=== PATIENT | female | born 1950 | race Two or more races ===

== ENCOUNTER 2017-04-29 10:58 | Outpatient (CLI) | payer BC ==
[2017-04-29 12:38] LABS: BASOPHILS % (AUTO) 0.5 % (0.0-2.0); EOSINOPHILS # (AUTO) 0.1 /CMM (0.0-0.7); EOSINOPHILS % (AUTO) 1.6 % (0.0-6.0); HEMATOCRIT 40 % (33-45); HEMOGLOBIN 13.7 g/dL (11.5-14.8); LYMPHOCYTES # (AUTO) 1.7 /CMM (0.8-4.8); LYMPHOCYTES % (AUTO) 25.6 % (20.0-44.0); MEAN CORPUSCULAR HEMOGLOBIN 30 PG (26.0-33.0); MEAN CORPUSCULAR HGB CONC 34 g/dl (31.0-36.0); MEAN CORPUSCULAR VOLUME 89 fL (82-100); MONOCYTES # (AUTO) 0.4 /CMM (0.1-1.30); MONOCYTES % (AUTO) 6.4 % (2.0-12.0); NEUTROPHILS # (AUTO) 4.5 /CMM (1.8-8.9); NEUTROPHILS % (AUTO) 65.9 % (43.0-81.0); PLATELET COUNT (AUTO) 211 /CMM (150-450); RDW COEFFICIENT OF VARIATION 12.7 (11.5-15.0); RED BLOOD CELL COUNT(AUTO) 4.51 MIL/uL (4.0-5.2); WHITE BLOOD COUNT (AUTO) 6.8 K/uL (4.3-11.0)
[2017-04-29 12:43] LABS: APPEARANCE,URINE CLEAR (CLEAR); BILIRUBIN,URINE NEGATIVE (NEGATIVE); BLOOD, URINE TRACE-INTA Ery/uL (NEGATIVE); COLOR,URINE YELLOW (YELLOW); KETONES,URINE NEGATIVE (NEGATIVE); LEUKOCYTE ESTERASE ,URINE NEGATIVE (NEGATIVE); NITRITE, URINE NEGATIVE (NEGATIVE); PH,URINE 7.5 (5.0-8.0); PROTEIN,URINE NEGATIVE (NEGATIVE); UGLUCOSE NEGATIVE (NEGATIVE); UROBILINOGEN,URINE 0.2 EU/dL (0.2)
[2017-04-29 12:57] LABS: ALANINE AMINOTRANSFERASE 24 U/L (12-78); ALBUMIN 3.9 g/dL (3.4-5.0); ALKALINE PHOSPHATASE 85 U/L (46-116); ASPARTATE AMINOTRANSFERASE 16 U/L (15-37); BILIRUBIN,TOTAL 0.3 mg/dL (0.2-1.0); CALCIUM, SERUM 9.9 mg/dL (8.5-10.1); CARBON DIOXIDE 29 mmol/L (21-32); CHLORIDE 107 mmol/L (98-107); CREATININE 0.7 mg/dL (0.6-1.3); GLUCOSE 92 mg/dL (74-106); POTASSIUM 4.3 mmol/L (3.5-5.1); SODIUM SERUM 146 mmol/L (136-145); TOTAL PROTEIN, SERUM 7.9 g/dL (6.4-8.2); UREA NITROGEN, BLOOD 15 mg/dL (7-18)
[2017-04-29 12:58] LABS: BACTERIA,URINE None seen /HPF (None Seen); RBC,URINE 0-2 /HPF (0-2); SQUAMOUS EPITHELIAL CELL,UR Few /HPF (None Seen); WBC,URINE NONE SEEN /HPF (0-3)
[2017-04-29 13:02] LABS: IRON, SERUM 66 ug/dl (50-175); TOTAL IRON BINDING CAPACITY 361 ug/dl (250-450)
[2017-04-29 13:03] LABS: CHOLESTEROL 355 mg/dL (<200); HDL CHOLESTEROL 57 mg/dL (40-60); LDL 275 mg/dL (0-99); THYROID STIMULATING HORMONE 1.111 uIU/mL (0.358-3.74); TRIGLYCERIDES 159 mg/dL (30-150)
[2017-04-29 14:32] LABS: C-REACTIVE PROTEIN < 0.2 mg/dL (0.0-0.9)
[2017-04-30 08:18] LABS: T3, FREE 3.2 pg/mL (2.0-4.4)
== END 2017-04-29 23:59 | disposition home or self-care (01) ==
LOC: LAB 10:58
PROVIDERS: ATTEND Legal Medicine
DX: E55.9 Vitamin D deficiency, unspecified (principal); R79.89 Other specified abnormal findings of blood chemistry
CPT/HCPCS: 36415; 80053-TC; 80061-TC; 81000-TC; 82306; 82728-TC; 82746; 83540-TC; 84439-TC; 84443-TC; 84481; 85025-TC; 85652-TC; 86140-TC

== ENCOUNTER 2017-05-25 10:40 | Outpatient (CLI) | payer BC ==
[2017-05-25 13:29] LABS: ALBUMIN 3.8 g/dL (3.4-5.0); BILIRUBIN,TOTAL 0.3 mg/dL (0.2-1.0); CALCIUM, SERUM 9.2 mg/dL (8.5-10.1); CREATININE 0.8 mg/dL (0.6-1.3); POTASSIUM 3.9 mmol/L (3.5-5.1); TOTAL PROTEIN, SERUM 7.9 g/dL (6.4-8.2)
[2017-05-25] MEDS ORDERED: GADOVERSETAMIDE 2.5 MMOL/5 ML VIAL ONE (16:28)
== END 2017-05-25 23:59 | disposition home or self-care (01) ==
LOC: MRI 10:40
PROVIDERS: ATTEND Legal Medicine
DX: I67.82 Cerebral ischemia (principal); D68.59 Other primary thrombophilia; H93.8X2 Other specified disorders of left ear
CPT/HCPCS: 36415; 70542; 70553; 80053; A9579

== ENCOUNTER 2017-12-31 13:56 | Outpatient (CLI) | payer BC | END 2017-12-31 23:59 | disposition home or self-care (01) | LOC: MRI 13:56 | PROVIDERS: ATTEND Legal Medicine | DX: M16.0 Bilateral primary osteoarthritis of hip (principal); M76.01 Gluteal tendinitis, right hip; M76.02 Gluteal tendinitis, left hip | CPT/HCPCS: 73721-TC ==

== ENCOUNTER 2018-04-07 08:48 | Day surgery (SDC) | payer BC ==
[2018-04-07] MEDS ORDERED: IOHEXOL 50 ML IV ONE (10:05)
[2018-04-07] MEDS ORDERED: methylPREDNISolone ACETATE 40 MG/ML VIAL ONE (10:05)
[2018-04-07] MEDS ORDERED: LIDOCAINE 1% INJ 50 ML MDV IJ ONE (10:05)
[2018-04-07] MEDS ORDERED: MIDAZOLAM HCL 2 MG/2ML VIAL ONE (10:39)
[2018-04-07] MEDS ORDERED: FENTANYL PF 100MCG/2ML AMPUL ONE (10:40)
[2018-04-07] MEDS ORDERED: BETA ACET/BET NA PHOS MDV 6 MG/ML VIAL ONE (11:01)
[2018-04-07] MEDS ORDERED: BUPIVACAINE 0.5 % PF 150 MG/30 ML VIAL ONE (11:02)
== END 2018-04-07 12:45 | disposition home or self-care (01) ==
LOC: DS 08:48
PROVIDERS: ATTEND Student in an Organized Health Care Education/Training Program
DX: M25.851 Other specified joint disorders, right hip (principal)
CPT/HCPCS: 27095; 72170; 73525; A6402; J0690; J0702; J2250; J2405; J2704; J3010; J3490 ×2; J7030; Q9967; Z7610 ×2; J1030

== ENCOUNTER 2019-02-17 13:08 | Outpatient (CLI) | payer BC ==
[2019-02-18] MEDS ORDERED: METOPROLOL TARTRATE INJ 5 MG/5 ML AMPUL ONE (10:19)
[2019-02-18] MEDS ORDERED: NITROGLYCERIN 0.4 MG/TAB BOTTLE ONE (10:19)
== END 2019-02-17 23:59 | disposition home or self-care (01) ==
LOC: CT 13:08
PROVIDERS: ATTEND Internal Medicine Interventional Cardiology
DX: I67.82 Cerebral ischemia (principal); I67.2 Cerebral atherosclerosis
CPT/HCPCS: 70450-TC; J3490

== ENCOUNTER → 2019-02-18 | Outpatient (CLI) | payer BC ==
[~2019-02-18] VITALS: Ht 157.5 cm; Wt 56.7 kg
[~2019-02-18] MED LIST: CT SWABBABLE VALVE TRANS SET 1 EA INFUS.SET MC ONE; IOHEXOL-350 100 ML VIAL IV ONE; IV NS 0.9% 250 ML IV ONE; METOPROLOL TARTRATE INJ 5 MG/5 ML AMPUL IVP PRN; NITROGLYCERIN 0.4 MG/TAB BOTTLE SL ONE
[2019-02-18 09:46] LABS: BASOPHILS % (AUTO) 0.7 % (0.0-2.0); EOSINOPHILS % (AUTO) 5.1 % (0.0-6.0); HEMATOCRIT 42 % (33-45); HEMOGLOBIN 13.9 g/dL (11.5-14.8); LYMPHOCYTES # (AUTO) 1.8 /CMM (0.8-4.8); MEAN CORPUSCULAR HGB CONC 33 g/dl (31.0-36.0); MEAN CORPUSCULAR VOLUME 92 fL (82-100); MONOCYTES # (AUTO) 0.5 /CMM (0.1-1.30); MONOCYTES % (AUTO) 8.2 % (2.0-12.0); NEUTROPHILS # (AUTO) 3.7 /CMM (1.8-8.9); PLATELET COUNT (AUTO) 236 /CMM (150-450); RED BLOOD CELL COUNT(AUTO) 4.62 MIL/uL (4.0-5.2); WHITE BLOOD COUNT (AUTO) 6.4 K/uL (4.3-11.0)
[2019-02-18 09:52] LABS: CALCIUM, SERUM 9.2 mg/dL (8.5-10.1); CARBON DIOXIDE 32 mmol/L (21-32); CHLORIDE 105 mmol/L (98-107); CREATININE 0.8 mg/dL (0.6-1.3); GLUCOSE 95 mg/dL (74-106); POTASSIUM 4.4 mmol/L (3.5-5.1); SODIUM SERUM 143 mmol/L (136-145); UREA NITROGEN, BLOOD 19 mg/dL (7-18)
[2019-02-18 09:59] LABS: ALANINE AMINOTRANSFERASE 23 U/L (12-78); ALBUMIN 3.9 g/dL (3.4-5.0); ALKALINE PHOSPHATASE 74 U/L (46-116); ASPARTATE AMINOTRANSFERASE 16 U/L (15-37); BILIRUBIN,TOTAL 0.4 mg/dL (0.2-1.0); TOTAL PROTEIN, SERUM 7.5 g/dL (6.4-8.2)
[2019-02-18 10:07] LABS: CHOLESTEROL 391 mg/dL (<200); HDL CHOLESTEROL 57 mg/dL (40-60); LDL 286 mg/dL (0-99); THYROID STIMULATING HORMONE 2.267 uIU/mL (0.358-3.74); TRIGLYCERIDES 206 mg/dL (30-150)
[2019-02-18 10:21] VITALS: BP 134/69
== END | disposition home or self-care (01) ==
LOC: CT 08:48
PROVIDERS: ATTEND Internal Medicine Interventional Cardiology
DX: R07.9 Chest pain, unspecified (principal); E03.9 Hypothyroidism, unspecified
CPT/HCPCS: 36415; 75574; 80053; 80061; 83036; 84439; 84443; 84484; 85025; J7050; Q9967